=== PATIENT | female | born 1985 | race Caucasian/White ===

== ENCOUNTER 2016-11-01 08:29 | Emergency (ER) | payer OTHER ==
[~2016-11-01] VITALS: Ht 167.6 cm; Wt 102.1 kg
[2016-11-01 08:29] VITALS: BP 138/84
== END 2016-11-01 09:04 | disposition home or self-care (01) ==
LOC: ER 08:37
DX: M72.2 Plantar fascial fibromatosis (principal); F32.9 Major depressive disorder, single episode, unspecified; F41.9 Anxiety disorder, unspecified; J45.909 Unspecified asthma, uncomplicated; K21.9 Gastro-esophageal reflux disease without esophagitis; Z88.0 Allergy status to penicillin; Z91.018 Allergy to other foods
CPT/HCPCS: 99283; A4606; Z7610

== ENCOUNTER 2016-12-19 14:43 | Emergency (ER) | payer OTHER ==
[~2016-12-19] VITALS: Ht 167.6 cm; Wt 99.8 kg
--- NOTE | 2016-12-19 14:45 | NUR ---
BIB SELF, COUGH, CONGESTION SINCE WEDNESDAY, NAD NOTED, VSS, RESP EVEN AND UNLABORED. WAITING FOR MD GORDON.
[2016-12-19 15:27] VITALS: BP 144/85
== END 2016-12-19 15:30 | disposition home or self-care (01) ==
LOC: ER 14:43
DX: J06.9 Acute upper respiratory infection, unspecified (principal); R03.0 Elevated blood-pressure reading, without diagnosis of hypertension; F32.9 Major depressive disorder, single episode, unspecified; F41.9 Anxiety disorder, unspecified; J45.909 Unspecified asthma, uncomplicated; K21.9 Gastro-esophageal reflux disease without esophagitis; Z88.0 Allergy status to penicillin; Z91.018 Allergy to other foods
CPT/HCPCS: 99281; A4606; Z7610; Z7502